=== PATIENT | female | born 1980 | race African-American/Black ===

== ENCOUNTER → 2018-09-10 | Outpatient (CLI) | payer OTHER ==
--- NOTE | 2018-09-10 20:21 | REP ---
Three-phase bone scan of the lower extremities. History: Endosteal sclerosis. Fibrous dysplasia. Comparison radiographs July 15, 2018 and June 10, 2018. Comparison left femur MRI imaging August 14, 2018. Technique: 22.0 mCi technetium 99m MDP is injected and standard three-phase imaging of the thighs is acquired. Scintigraphic findings: The anterior and posterior flow images are normal. Blood pool images show no area of increased a regional soft tissue uptake or early abnormal bony uptake. Delayed scan images demonstrate mild symmetric increased uptake in the patella bilaterally and to a lesser extent, posterolaterally and relatively focally in the distal femoral metaphyses bilaterally. This uptake is more distal than the sclerosis seen in the distal femurs on radiographs. This may reflect stress phenomenon. In the area where the distal femur show sclerosis, there is normal symmetric radiotracer accumulation. Impression: Possible stress phenomenon in the distal aspect of each femoral metaphysis posterolaterally. Mild patellar uptake. Otherwise negative three-phase bone scan of the thighs. Electronically Signed by Lucho Lawton MD 09/10/2018 08:45 P
== END ==
LOC: M RAD 10:03
PROVIDERS: ATTEND Physician Assistant
DX: M89.9 Disorder of bone, unspecified (principal)
CPT/HCPCS: 78315; A9503

== ENCOUNTER → 2018-10-21 | Outpatient (CLI) | payer OTHER ==
--- NOTE | 2018-10-24 13:55 | DEXA ---
AP SPINE L1 - L4 1.613 3.4 2.7 LT FEMUR TOTAL 1.460 3.6 2.8 LT NECK 1.418 2.7 2.2 RT FEMUR TOTAL 1.474 3.7 2.9 RT NECK 1.368 2.4 1.8 TOTAL BODY TOTAL OTHER COMMENTS: Normal bone densitometry of the spine and hips. FOLLOW-UP: Recommendation for the next bone density exam: 5 years. FLORES
== END ==
LOC: M WHC 14:55
PROVIDERS: ATTEND Physician Assistant
DX: M89.8X5 Other specified disorders of bone, thigh (principal)

== ENCOUNTER → 2018-10-29 | Outpatient (CLI) | payer OTHER ==
[~2018-10-29] MED LIST: ISOVUE-370 76% 125ML VIAL (Q9967 PER ML) As Ordered ONE
--- NOTE | 2018-10-29 14:27 | REP ---
HYSTEROSALPINGOGRAM: Patient was referred for hysterosalpingogram. The cervix was catheterized by the referring clinician who injected contrast. I performed fluoroscopy obtained fluoroscopic images. The uterus is deviated to the left. Fallopian tubes opacify the contrast with no dilatation. No filling defect is seen in the uterus. No contour abnormality is seen of the uterus. There is free intraperitoneal spillage of contrast from both fallopian tubes consistent with bilateral fallopian tube patency. IMPRESSION: Bilateral fallopian tubes are patent. 0.2 minutes of fluoroscopy time utilized for the procedure. Electronically Signed by Gabriel Grubbs MD 10/30/2018 10:18 A
== END ==
LOC: M RADPRO 12:09
PROVIDERS: ATTEND Obstetrics & Gynecology
DX: N97.9 Female infertility, unspecified (principal)
CPT/HCPCS: 58340; 74740; Q9967

== ENCOUNTER → 2019-02-14 | Outpatient (CLI) | payer OTHER ==
--- NOTE | 2019-02-14 15:23 | REP ---
RIGHT FOOT SERIES: Four views. HISTORY: Unspecified injury right foot and ankle pain. FINDINGS: Four views of the right foot demonstrate a transversely oriented fracture through the proximal end of the 5th metatarsal. This is nondisplaced. There is associated soft-tissue swelling. There is Achilles and plantar calcaneal spurring. Bones, joints, and soft tissues are otherwise unremarkable. IMPRESSION: Transversely oriented nondisplaced fracture through the proximal metaphysis of the 5th metatarsal with associated soft tissues swelling. Electronically Signed by Lucho Lawton MD 02/14/2019 08:20 P
--- NOTE | 2019-02-14 15:24 | REP ---
RIGHT ANKLE SERIES: Four views. HISTORY: Pain after injury. FINDINGS: Four views right ankle demonstrate intact ankle mortise. There is Achilles and plantar calcaneal spurring. A 5th proximal metatarsal fractures seen on the lateral radiograph. No ankle fractures seen. IMPRESSION: Fracture of the proximal end of the 5th metatarsal noted. Heel spurring. No ankle fracture seen. Electronically Signed by Lucho Lawton MD 02/14/2019 08:19 P
== END ==
LOC: M LRY 14:38
PROVIDERS: ATTEND Nurse Practitioner Family
DX: S92.351A Displaced fracture of fifth metatarsal bone, right foot, initial encounter for closed fracture (principal); M77.31 Calcaneal spur, right foot; X58.XXXA Exposure to other specified factors, initial encounter; Y92.9 Unspecified place or not applicable
CPT/HCPCS: 73610; 73630; G0463

== ENCOUNTER → 2019-03-27 | Outpatient (REF) | payer OTHER ==
[~2019-03-27] MED LIST changes: +CHOL100029 PO; -ISOVUE-370 76% 125ML VIAL (Q9967 PER ML) As Ordered ONE; +MAGN250T7 PO; +NAPR-885 PO; +OMEP1CAP73 PO; +OXYC1TAB23; +SM HTAB3 PO
== END ==
LOC: M LABDRAW1 17:24
PROVIDERS: ATTEND Orthopaedic Surgery
DX: M79.671 Pain in right foot (principal)

== ENCOUNTER 2019-04-04 08:02 | Day surgery (SDC) | payer OTHER ==
[~2019-04-04] VITALS: Ht 162.6 cm; Wt 93.6 kg
[~2019-04-04 08:02] MED LIST changes: +LIDOCAINE 1% MDV 20ML VIAL SQ PRN; +LR 1,000 ML IV ONE; -OMEP1CAP73 PO; +OMEP20CA4 PO; -OXYC1TAB23; +ceFAZolin SOD 1 GM in D5W MINI-BAG PLUS 50 ML IV ONE
[2019-04-04] MEDS ORDERED: ROPIvacaine 0.5% 30 ML INJECTION (J2795 PER 1MG) ONE (08:03)
[2019-04-04] MEDS ORDERED: LIDOCAINE 2% MDV *ALTO* 20 ML VIAL ONE (08:03)
[2019-04-04] MEDS ORDERED: dexameTHASONE 10 MG/1 ML VIAL PRES.FREE (J1100) ONE (08:03)
[2019-04-04 08:49] LABS: URINE PREG TEST NEGATIVE (NEGATIVE)
[2019-04-04] MEDS ORDERED: MIDAZOLAM INJ 2 MG/2 ML VIAL (J2250) As Ordered ONE ×2 (10:26→12:21)
[2019-04-04] MEDS ORDERED: fentaNYL 100 MCG/2 ML INJECTION (J3010) As Ordered ONE (10:26)
[2019-04-04] MEDS ORDERED: MIDAZOLAM INJ 2 MG/2 ML VIAL (J2250) IV ONE (12:00)
[2019-04-04] MEDS ORDERED: fentaNYL 100 MCG/2 ML INJECTION (J3010) IV ONE (12:00)
[2019-04-04] MEDS ORDERED: ONDANSETRON 4MG/2ML VIAL (J2405) As Ordered ONE (12:21)
[2019-04-04] MEDS ORDERED: LIDOCAINE 2% INJ 100 MG/5 ML SDV (FOR ANES.) As Ordered ONE (12:21)
[2019-04-04] MEDS ORDERED: SUGAMMADEX SODIUM 500 MG/5 ML VIAL (BRIDION) As Ordered ONE (12:21)
[2019-04-04] MEDS ORDERED: dexameTHASONE 4 MG/ML 1ML VIAL (J1100) As Ordered ONE (12:21)
[2019-04-04] MEDS ORDERED: ROCURONIUM BROMIDE 50 MG/5 ML VIAL As Ordered ONE (12:21)
[2019-04-04] MEDS ORDERED: fentaNYL 250 MCG/5 ML INJECTION (J3010) As Ordered ONE (12:21)
[2019-04-04] MEDS ORDERED: PROPOFOL 200 MG/20 ML VIAL As Ordered ONE (12:21)
[2019-04-04] MEDS ORDERED: PHENYLephrine HCL 500 MCG/5 ML (100MCG/ML) SYRINGE (J2370) As Ordered ONE (12:21)
[2019-04-04] MEDS ORDERED: GLYCOPYRROLATE INJ 0.2 MG/ML 2 ML VIAL As Ordered ONE (12:39)
[2019-04-04] MEDS ORDERED: PERCOCET 5MG/325MG TAB PO PRN (13:45)
[2019-04-04] MEDS ORDERED: ONDANSETRON 4MG/2ML VIAL (J2405) IV PRN (13:45)
[2019-04-04] MEDS ORDERED: HYDROMORPHONE HCL 0.5 MG/ 0.5 ML SYRINGE (J1170 PER 1) IV PRN (13:45)
[2019-04-04] MEDS ORDERED: LR 1,000 ML IV SCH ×2 (13:45→14:00)
[2019-04-04] MEDS ORDERED: fentaNYL 100 MCG/2 ML INJECTION (J3010) IV PRN (13:45)
[2019-04-04 15:25] VITALS: BP 112/60
--- NOTE | 2019-04-04 16:01 | REP ---
Right foot: Seven views. History: Intraoperative imaging. 3 minutes 25 seconds of fluoroscopy time is reported. Findings: A sequence of seven last image hold fluoroscopically obtained spot radiographs of the right foot document operative fixation screw placement for proximal fifth metatarsal fracture. Electronically Signed by Lucho Lawton MD 04/04/2019 04:05 P
[2019-04-05] MEDS ORDERED: OXYC1TAB23 (11:28)
--- NOTE | 2019-04-08 19:06 | RO ---
DATE OF PROCEDURE: 04/04/2019 PREPROCEDURE DIAGNOSIS: Right Vasquez fracture. POSTPROCEDURE DIAGNOSIS: Right Vasquez fracture. PROCEDURE: Right 5th metatarsal closed reduction and screw insertion. SURGEON: Mikki Rosa MD [employer] SUPERVISOR: HAYDEE Cash ANESTHESIA: LMA and popliteal nerve block. ESTIMATED BLOOD LOSS: 5 mL. COMPLICATIONS: None. CONDITION: Stable to recovery. IMPLANTS: An Arthrex 4.5 mm x 40 mm titanium Vasquez screw. INDICATIONS: Jed Lassiter is a 38-year-old female who sustained a Vasquez fracture approximately 6-7 weeks ago. The patient was initially being treated nonoperatively with a cast and non-weightbearing. She had made minimal progress with bone healing and has elected to proceed with screw insertion with possible bone grafting. Risks and benefits of surgery were discussed with the patient in detail and include but are not limited to infection, damage to nerves and blood vessels, need for additional procedures, continued pain and stiffness. Informed consent was obtained in the office. DESCRIPTION OF PROCEDURE: The patient was met in the preoperative holding area where her right lower extremity was marked as the correct operative site. She was then taken to the post-anesthesia care unit (PACU) where she underwent a nerve block by the anesthesia team. From there, the patient went to the operating room where she was placed in the supine position on the operating room table. Bony prominences were well padded. A large bump was placed under the ipsilateral hip. She underwent LMA anesthesia without difficulty. Antibiotics were given within 60 minutes prior to incision. A well-padded tourniquet was placed on the right upper thigh. A chlorhexidine scrub was performed to the right lower extremity, which was then prepped and draped in the normal sterile fashion. Following this, x-rays of the right foot were performed by myself using mini C-arm. I was able to gain compression of the fracture site with abduction of the foot and thus the decision was made to proceed with a percutaneous screw. A small incision was made 1-2 cm proximal from the 5th metatarsal. Blunt dissection was performed to avoid branches of the sural nerve. Using the appropriate guide, the guidewire was inserted into the 5th metatarsal and placed in the center-center position through the metatarsal across the fracture site. Radiographs were performed in AP oblique and lateral views to ensure appropriate position of the guidewire. Following this, I did drill with a 3.5 mm drill and then reamed up to 4.5 mm. I selected a 40 x 4.5 mm screw and HAYDEE Cash, helped compression while the screw was inserted. This did give nice compression across the fracture site. Appropriate screw placement was confirmed on AP oblique and lateral views. Reduction was satisfactory. Again, there was good compression across the fracture site and so I did not open the fracture site itself or bone graft at this time. Copious irrigation was performed, and the skin was closed using #3-0 Vicryl and #3-0 nylon. The patient was placed into a well-padded cast. Her leg had been exsanguinated and tourniquet was inflated to 275 mm for just over 30 minutes. All counts were correct at the end of the case. PLAN: The patient will be non-weightbearing on the right lower extremity for 4-6 weeks. I will see her back in 2 weeks for suture removal. She will be on aspirin for deep vein thrombosis (DVT) prophylaxis in the meantime.
== END 2019-04-04 15:32 | disposition home or self-care (01) ==
LOC: M SDC 08:02
PROVIDERS: ATTEND Orthopaedic Surgery
DX: S92.351A Displaced fracture of fifth metatarsal bone, right foot, initial encounter for closed fracture (principal); X58.XXXA Exposure to other specified factors, initial encounter; Y92.89 Other specified places as the place of occurrence of the external cause; Y93.9 Activity, unspecified; Y99.9 Unspecified external cause status; K21.9 Gastro-esophageal reflux disease without esophagitis; G43.909 Migraine, unspecified, not intractable, without status migrainosus; Z91.010 Allergy to peanuts; Z79.899 Other long term (current) drug therapy
CPT/HCPCS: 28476; 64445; 76000; 84703; C1713; J0690; J1100; J2250; J2370; J2405; J2795; J3010

== ENCOUNTER 2019-04-05 11:21 | Emergency (ER) | payer OTHER ==
[~2019-04-05] VITALS: Ht 162.6 cm; Wt 93.6 kg
[~2019-04-05 11:21] MED LIST changes: -LIDOCAINE 1% MDV 20ML VIAL SQ PRN; -LR 1,000 ML IV ONE; -ceFAZolin SOD 1 GM in D5W MINI-BAG PLUS 50 ML IV ONE
[2019-04-05] MEDS ORDERED: OXYC1TAB23 (11:28)
[2019-04-05] MEDS ORDERED: HYDROMORPHONE HCL 0.5 MG/ 0.5 ML SYRINGE (J1170 PER 1) IM ONE (12:45)
[2019-04-05 13:17] VITALS: BP 123/72
== END 2019-04-05 13:18 | disposition home or self-care (01) ==
LOC: M ED 11:21
DX: Z46.89 Encounter for fitting and adjustment of other specified devices (principal)
CPT/HCPCS: 96372; 99283; J1170

== ENCOUNTER 2020-03-14 03:55 | Emergency (ER) | payer OTHER ==
[~2020-03-14 03:55] MED LIST changes: +OMEP1CAP73 PO; -OMEP20CA4 PO; +OXYC1TAB23
[2020-03-14] MEDS ORDERED: KETOROLAC 30 MG/ML 1ML VIAL ONE ×2 (05:45→06:02)
[2020-03-14] MEDS ORDERED: diphenhydrAMINE 50MG/ML VIAL (J1200) ONE ×2 (05:45→06:02)
[2020-03-14] MEDS ORDERED: diphenhydrAMINE 50MG/ML VIAL (J1200) As Ordered ONE ×2 (05:45→06:02)
[2020-03-14] MEDS ORDERED: KETOROLAC 30 MG/ML 1ML VIAL As Ordered ONE ×2 (05:45→06:02)
== END 2020-03-14 07:25 | disposition home or self-care (01) ==
LOC: M ED 03:55
DX: G43.909 Migraine, unspecified, not intractable, without status migrainosus (principal); Z79.899 Other long term (current) drug therapy
CPT/HCPCS: 96372; 99283; J1200; J1885